=== PATIENT | male | born 1940 | race Caucasian/White ===

== ENCOUNTER 2021-11-04 13:28 | Inpatient (IN) ==
[2021-11-04] MEDS ORDERED: Ondansetron 4 MG/2 ML VIAL IVP PRN (17:17)
[2021-11-04] MEDS ORDERED: Naloxone 0.4 MG/ML INJ IVP PRN (17:35)
[2021-11-04 18:11] LABS: Basophils % 0.1 %; Hematocrit 35.8 % (37.5-50.1); Hemoglobin 11.3 g/dL (12.9-16.9); Immature Granulocytes % 0.3 % (0-4); Lymphocytes # 0.5 K/mcL (0.6-4.6); Lymphocytes % 6.7 %; Mean Corpuscular HGB Conc 31.6 g/dL (31.6-35.5); Mean Corpuscular Hemoglobin 25.3 pg (28.0-33.3); Mean Corpuscular Volume 80.3 fL (83.0-100.0); Mean Platelet Volume 11.9 fL (9.4-12.4); Monocytes # 0.1 K/mcL (0.0-1.3); Neutrophils # 6.2 K/mcL (1.6-8.9); Platelet Count 268 K/mcL (140-400); Red Blood Count 4.46 M/mcL (4.19-5.50); Red Cell Distribution Width 14.6 % (11.5-14.5); Segmented Neutrophils % 91.9 %; White Blood Count 6.7 K/mcL (4.3-11.1)
[2021-11-04 18:20] LABS: INR 1.2; Prothrombin Time 13.3 Seconds (9.4-12.1)
[2021-11-04 18:29] LABS: Albumin 3.5 g/dL (3.5-5.7); Albumin/Globulin Ratio 1.1 (1.1-2.2); Bilirubin,Direct 0.1 mg/dL (0.0-0.2); Bilirubin,Indirect 0.4 mg/dL (0.0-1.0); Bilirubin,Total 0.5 mg/dL (0.3-1.0); Globulin 3.3 g/dL (2.4-3.5); Total Protein 6.8 g/dL (6.4-8.9)
[2021-11-04] MEDS ORDERED: Dextrose 4 GM Chewable Tablets PO PRN ×2 (19:41)
[2021-11-04] MEDS ORDERED: *HR* Dextrose 50 % in Water (Syg) 50 ML SYRINGE IVP PRN (19:41)
[2021-11-04] MEDS ORDERED: D5% in Water 1,000 ML IVC PRN (19:41)
[2021-11-04 20:03] LABS: Calcium 9.4 mg/dL (8.6-10.3); Potassium 4.3 mEq/L (3.5-5.1)
[2021-11-04] MEDS ORDERED: *HR* Labetalol 20 MG/4 ML SYRINGE IVP ONE (23:42)
[2021-11-05] MEDS ORDERED: *HR* LORazepam 2 MG/ML VIAL IVP ONE ×4 (03:20→17:03)
[2021-11-05] MEDS ORDERED: *HR* Labetalol 20 MG/4 ML SYRINGE IVP ONE ×3 (03:24→06:06)
[2021-11-05 06:18] LABS: Hematocrit 34.2 % (37.5-50.1); Hemoglobin 10.9 g/dL (12.9-16.9); Immature Granulocytes % 0.6 % (0-4); Lymphocytes # 0.5 K/mcL (0.6-4.6); Lymphocytes % 5.8 %; Mean Corpuscular HGB Conc 31.9 g/dL (31.6-35.5); Mean Corpuscular Hemoglobin 25.5 pg (28.0-33.3); Mean Corpuscular Volume 80.1 fL (83.0-100.0); Mean Platelet Volume 11.9 fL (9.4-12.4); Monocytes # 0.1 K/mcL (0.0-1.3); Monocytes % 1.2 %; Neutrophils # 7.6 K/mcL (1.6-8.9); Platelet Count 252 K/mcL (140-400); Red Blood Count 4.27 M/mcL (4.19-5.50); Red Cell Distribution Width 14.6 % (11.5-14.5); Segmented Neutrophils % 92.4 %; White Blood Count 8.2 K/mcL (4.3-11.1)
[2021-11-05 06:35] LABS: Calcium 9.4 mg/dL (8.6-10.3); Potassium 3.9 mEq/L (3.5-5.1)
[2021-11-05] MEDS ORDERED: QUEtiapine Fumarate 25 MG TABLET PO SCH (10:00)
[2021-11-05] MEDS: amLODIPine 5 MG TABLET PO SCH (12:47)
[2021-11-05] MEDS ORDERED: amLODIPine 5 MG TABLET PO ONE (14:00)
[2021-11-05] MEDS: carvediloL 6.25 MG TABLET PO SCH (16:25)
[2021-11-05] MEDS: *HR* OxyCODONE/APAP 5/325 TABLET PO PRN (16:25)
[2021-11-05] MEDS: Insulin LISPRO 300 UNITS/3 ML VIAL SUBQ SCH ×2 (16:26→20:36)
[2021-11-05] MEDS ORDERED: Morphine Sulfate 2 MG/ML SYRINGE IVP ONE (16:48)
[2021-11-05] MEDS ORDERED: Phenytoin 1,000 MG in Equashield Syringe 1 EACH IVP ONE (19:11)
[2021-11-05] MEDS ORDERED: Phenytoin 1,000 MG in 0.9 % Sodium Chloride 50 ML IVP ONE (20:00)
[2021-11-05] MEDS: Ipratropium/Albuterol Neb 3 ML IH SCH ×2 (20:30→23:53)
[2021-11-05] MEDS: QUEtiapine Fumarate 25 MG TABLET PO SCH (20:35)
[2021-11-05] MEDS: Isosorbide MONOnitrate (24 HR) 60 MG TAB.ER.24H PO SCH (20:35)
[2021-11-05] MEDS: Spironolactone 12.5 MG TABLET PO SCH (20:36)
[2021-11-05] MEDS: Insulin DETEMIR 100 UNIT/ML X5UNITS SUBQ SCH (20:43)
[2021-11-06] MEDS: *HR* LORazepam 2 MG/ML VIAL IVP PRN ×2 (00:38→08:54)
[2021-11-06 03:26] LABS: Basophils % 0.1 %; Hematocrit 32.1 % (37.5-50.1); Hemoglobin 10.5 g/dL (12.9-16.9); Immature Granulocytes % 0.8 % (0-4); Lymphocytes # 0.7 K/mcL (0.6-4.6); Lymphocytes % 5.5 %; Mean Corpuscular HGB Conc 32.7 g/dL (31.6-35.5); Mean Corpuscular Hemoglobin 26.1 pg (28.0-33.3); Mean Corpuscular Volume 79.7 fL (83.0-100.0); Mean Platelet Volume 12.1 fL (9.4-12.4); Monocytes # 0.6 K/mcL (0.0-1.3); Monocytes % 4.4 %; Neutrophils # 11.2 K/mcL (1.6-8.9); Platelet Count 280 K/mcL (140-400); Red Blood Count 4.03 M/mcL (4.19-5.50); Red Cell Distribution Width 14.8 % (11.5-14.5); Segmented Neutrophils % 89.2 %; White Blood Count 12.6 K/mcL (4.3-11.1)
[2021-11-06 03:48] LABS: Calcium 9.3 mg/dL (8.6-10.3); Potassium 4.3 mEq/L (3.5-5.1)
[2021-11-06] MEDS: Ipratropium/Albuterol Neb 3 ML IH SCH ×2 (05:11→11:21)
[2021-11-06] MEDS: Isosorbide MONOnitrate (24 HR) 60 MG TAB.ER.24H PO SCH ×2 (08:02→22:02)
[2021-11-06] MEDS: Spironolactone 12.5 MG TABLET PO SCH ×2 (08:02→22:01)
[2021-11-06] MEDS: Insulin DETEMIR 100 UNIT/ML X5UNITS SUBQ SCH ×2 (08:02→22:00)
[2021-11-06] MEDS: amLODIPine 5 MG TABLET PO SCH (08:02)
[2021-11-06] MEDS: carvediloL 6.25 MG TABLET PO SCH ×2 (08:03→17:28)
[2021-11-06] MEDS: QUEtiapine Fumarate 25 MG TABLET PO SCH ×3 (08:03→22:00)
[2021-11-06] MEDS: Insulin LISPRO 300 UNITS/3 ML VIAL SUBQ SCH ×4 (08:05→22:00)
[2021-11-06] MEDS: *HR* OxyCODONE/APAP 5/325 TABLET PO PRN ×2 (08:09→17:48)
[2021-11-06] MEDS ORDERED: Loratadine 10 MG TABLET PO SCH (09:00)
[2021-11-06] MEDS ORDERED: Ipratropium/Albuterol Neb 3 ML IH PRN (11:55)
[2021-11-06] MEDS: *HR* LORazepam 2 MG/ML VIAL IVP SCH ×2 (14:47→21:56)
[2021-11-06] MEDS: [UNRECOGNIZED DRUG - OTHER] IVP SCH (20:00)
[2021-11-06] MEDS: PHENYTOIN IVP SCH (20:00)
[2021-11-07] MEDS: *HR* LORazepam 2 MG/ML VIAL IVP SCH ×3 (05:41→21:53)
[2021-11-07 06:32] LABS: Basophils % 0.1 %; Hematocrit 38.1 % (37.5-50.1); Immature Granulocytes % 0.5 % (0-4); Lymphocytes # 0.8 K/mcL (0.6-4.6); Lymphocytes % 5.3 %; Mean Corpuscular HGB Conc 32.5 g/dL (31.6-35.5); Mean Corpuscular Hemoglobin 25.8 pg (28.0-33.3); Mean Corpuscular Volume 79.4 fL (83.0-100.0); Mean Platelet Volume 11.7 fL (9.4-12.4); Monocytes # 1.3 K/mcL (0.0-1.3); Monocytes % 9.1 %; Neutrophils # 12.1 K/mcL (1.6-8.9); Platelet Count 297 K/mcL (140-400); Red Cell Distribution Width 14.8 % (11.5-14.5); White Blood Count 14.2 K/mcL (4.3-11.1)
[2021-11-07 06:34] LABS: Hemoglobin 12.4 g/dL (12.9-16.9)
[2021-11-07 06:52] LABS: Calcium 9.5 mg/dL (8.6-10.3); Potassium 3.9 mEq/L (3.5-5.1)
[2021-11-07] MEDS: Insulin LISPRO 300 UNITS/3 ML VIAL SUBQ SCH ×4 (08:22→21:10)
[2021-11-07] MEDS: amLODIPine 5 MG TABLET PO SCH (12:22)
[2021-11-07] MEDS: carvediloL 6.25 MG TABLET PO SCH ×2 (12:22→18:01)
[2021-11-07] MEDS: Isosorbide MONOnitrate (24 HR) 60 MG TAB.ER.24H PO SCH ×3 (12:26→21:59)
[2021-11-07] MEDS: QUEtiapine Fumarate 25 MG TABLET PO SCH ×3 (12:42→21:59)
[2021-11-07] MEDS: Spironolactone 12.5 MG TABLET PO SCH ×3 (12:42→21:59)
[2021-11-07] MEDS: Insulin DETEMIR 100 UNIT/ML X5UNITS SUBQ SCH ×2 (12:53→21:16)
[2021-11-07] MEDS: PHENYTOIN IVP SCH (19:45)
[2021-11-07] MEDS: [UNRECOGNIZED DRUG - OTHER] IVP SCH (19:45)
[2021-11-07] MEDS ORDERED: *HR* LORazepam 2 MG/ML VIAL IVP ONE (22:20)
[2021-11-08] MEDS ORDERED: *HR* LORazepam 2 MG/ML VIAL IVP ONE (02:11)
[2021-11-08 03:01] LABS: Basophils % 0.1 %; Eosinophils % 0.1 %; Hematocrit 37.2 % (37.5-50.1); Hemoglobin 11.7 g/dL (12.9-16.9); Immature Granulocytes % 0.3 % (0-4); Lymphocytes # 0.7 K/mcL (0.6-4.6); Lymphocytes % 5.9 %; Mean Corpuscular HGB Conc 31.5 g/dL (31.6-35.5); Mean Corpuscular Hemoglobin 24.9 pg (28.0-33.3); Mean Corpuscular Volume 79.3 fL (83.0-100.0); Mean Platelet Volume 11.7 fL (9.4-12.4); Monocytes % 8.6 %; Neutrophils # 9.9 K/mcL (1.6-8.9); Platelet Count 286 K/mcL (140-400); Red Blood Count 4.69 M/mcL (4.19-5.50); White Blood Count 11.6 K/mcL (4.3-11.1)
[2021-11-08 03:19] LABS: Calcium 9.1 mg/dL (8.6-10.3); Potassium 3.9 mEq/L (3.5-5.1)
[2021-11-08] MEDS: *HR* LORazepam 2 MG/ML VIAL IVP SCH ×2 (06:19→15:04)
[2021-11-08] MEDS: Insulin LISPRO 300 UNITS/3 ML VIAL SUBQ SCH ×4 (09:29→20:41)
[2021-11-08] MEDS ORDERED: Haloperidol Oral Conc 10 MG/5 ML UDC PO PRN (11:09)
[2021-11-08] MEDS: amLODIPine 5 MG TABLET PO SCH (11:41)
[2021-11-08] MEDS: QUEtiapine Fumarate 25 MG TABLET PO SCH ×2 (11:41→19:59)
[2021-11-08] MEDS: Spironolactone 12.5 MG TABLET PO SCH ×2 (11:41→19:59)
[2021-11-08] MEDS: Isosorbide MONOnitrate (24 HR) 60 MG TAB.ER.24H PO SCH ×2 (11:41→19:59)
[2021-11-08] MEDS: carvediloL 6.25 MG TABLET PO SCH ×2 (11:42→18:11)
[2021-11-08] MEDS: Insulin DETEMIR 100 UNIT/ML X5UNITS SUBQ SCH ×2 (13:31→20:45)
[2021-11-08] MEDS: [UNRECOGNIZED DRUG - OTHER] IVP SCH (19:58)
[2021-11-08] MEDS: PHENYTOIN IVP SCH (19:58)
[2021-11-08] MEDS: Melatonin 3 MG TABLET PO PRN (19:59)
[2021-11-09] MEDS ORDERED: *HR* LORazepam 2 MG/ML VIAL IM PRN (05:11)
[2021-11-09] MEDS: amLODIPine 5 MG TABLET PO SCH ×2 (07:49→08:12)
[2021-11-09] MEDS: carvediloL 6.25 MG TABLET PO SCH ×3 (07:49→16:51)
[2021-11-09] MEDS: Spironolactone 12.5 MG TABLET PO SCH ×3 (07:49→20:22)
[2021-11-09] MEDS: QUEtiapine Fumarate 25 MG TABLET PO SCH ×3 (07:49→20:21)
[2021-11-09] MEDS: dexAMETHasone 4 MG TABLET PO SCH ×2 (07:50→08:12)
[2021-11-09] MEDS: Isosorbide MONOnitrate (24 HR) 60 MG TAB.ER.24H PO SCH ×3 (07:54→20:22)
[2021-11-09] MEDS: Insulin LISPRO 300 UNITS/3 ML VIAL SUBQ SCH ×3 (08:03→16:47)
[2021-11-09] MEDS: Insulin DETEMIR 100 UNIT/ML X5UNITS SUBQ SCH ×2 (10:30→20:33)
[2021-11-09] MEDS ORDERED: Haloperidol Lactate 5 MG/ML VIAL IVP PRN (16:13)
[2021-11-09] MEDS ORDERED: Haloperidol Oral Conc 10 MG/5 ML UDC PO PRN (16:18)
[2021-11-09] MEDS: Haloperidol Oral Conc 10 MG/5 ML UDC PO SCH ×2 (16:57→20:18)
[2021-11-09] MEDS: PHENYTOIN IVP SCH (20:18)
[2021-11-09] MEDS: [UNRECOGNIZED DRUG - OTHER] IVP SCH (20:18)
[2021-11-09] MEDS: *HR* LORazepam 2 MG/ML VIAL IVP PRN (20:21)
[2021-11-09] MEDS: Melatonin 3 MG TABLET PO PRN (20:22)
[2021-11-10] MEDS: Insulin LISPRO 300 UNITS/3 ML VIAL SUBQ SCH ×5 (05:26→21:00)
[2021-11-10] MEDS: QUEtiapine Fumarate 25 MG TABLET PO SCH ×2 (08:08→20:12)
[2021-11-10] MEDS: amLODIPine 5 MG TABLET PO SCH (08:09)
[2021-11-10] MEDS: dexAMETHasone 4 MG TABLET PO SCH (08:09)
[2021-11-10] MEDS: carvediloL 6.25 MG TABLET PO SCH ×2 (08:09→16:04)
[2021-11-10] MEDS: Haloperidol Oral Conc 10 MG/5 ML UDC PO SCH ×3 (08:09→20:12)
[2021-11-10] MEDS: Spironolactone 12.5 MG TABLET PO SCH ×2 (08:12→20:13)
[2021-11-10] MEDS: Isosorbide MONOnitrate (24 HR) 60 MG TAB.ER.24H PO SCH ×2 (08:12→20:12)
[2021-11-10] MEDS: Insulin DETEMIR 100 UNIT/ML X5UNITS SUBQ SCH ×2 (08:12→21:00)
[2021-11-10] MEDS: *HR* LORazepam 2 MG/ML VIAL IVP PRN (20:13)
[2021-11-10] MEDS: Melatonin 3 MG TABLET PO PRN (20:13)
[2021-11-11] MEDS: [UNRECOGNIZED DRUG - OTHER] IVP SCH ×2 (05:05→20:19)
[2021-11-11] MEDS: PHENYTOIN IVP SCH ×2 (05:05→20:19)
[2021-11-11] MEDS: Haloperidol Oral Conc 10 MG/5 ML UDC PO SCH ×3 (08:47→20:22)
[2021-11-11] MEDS: Insulin LISPRO 300 UNITS/3 ML VIAL SUBQ SCH ×4 (10:03→20:30)
[2021-11-11] MEDS: Isosorbide MONOnitrate (24 HR) 60 MG TAB.ER.24H PO SCH ×2 (10:04→20:29)
[2021-11-11] MEDS: Spironolactone 12.5 MG TABLET PO SCH ×2 (10:04→20:24)
[2021-11-11] MEDS: dexAMETHasone 4 MG TABLET PO SCH (10:04)
[2021-11-11] MEDS: Insulin DETEMIR 100 UNIT/ML X5UNITS SUBQ SCH ×2 (10:04→20:29)
[2021-11-11] MEDS: amLODIPine 5 MG TABLET PO SCH (10:04)
[2021-11-11] MEDS: QUEtiapine Fumarate 25 MG TABLET PO SCH ×2 (10:04→20:29)
[2021-11-11] MEDS: carvediloL 6.25 MG TABLET PO SCH ×2 (10:04→16:44)
[2021-11-11] MEDS: *HR* LORazepam 2 MG/ML VIAL IVP PRN ×3 (10:21→23:54)
[2021-11-12] MEDS: Haloperidol Oral Conc 10 MG/5 ML UDC PO SCH ×3 (08:32→20:28)
[2021-11-12] MEDS: *HR* LORazepam 2 MG/ML VIAL IVP PRN ×4 (08:32→20:15)
[2021-11-12] MEDS: dexAMETHasone 4 MG TABLET PO SCH (09:24)
[2021-11-12] MEDS: carvediloL 6.25 MG TABLET PO SCH ×2 (09:24→17:18)
[2021-11-12] MEDS: Spironolactone 12.5 MG TABLET PO SCH ×2 (09:24→20:28)
[2021-11-12] MEDS: amLODIPine 5 MG TABLET PO SCH (09:26)
[2021-11-12] MEDS: Isosorbide MONOnitrate (24 HR) 60 MG TAB.ER.24H PO SCH ×2 (09:26→20:28)
[2021-11-12] MEDS: Insulin DETEMIR 100 UNIT/ML X5UNITS SUBQ SCH ×2 (09:26→20:30)
[2021-11-12] MEDS: QUEtiapine Fumarate 25 MG TABLET PO SCH ×2 (09:27→20:30)
[2021-11-12] MEDS: Insulin LISPRO 300 UNITS/3 ML VIAL SUBQ SCH ×4 (09:36→20:28)
[2021-11-12] MEDS: Haloperidol Lactate 5 MG/ML VIAL IVP PRN ×3 (13:59→21:20)
[2021-11-12] MEDS ORDERED: Valproic Acid INJ 500 MG in 0.9 % Sodium Chloride 100 ML IVPB SCH (18:00)
[2021-11-12] MEDS: Valproic Acid INJ 500 MG in 0.9 % Sodium Chloride 100 ML IVPB SCH (20:14)
[2021-11-13] MEDS: *HR* LORazepam 2 MG/ML VIAL IVP PRN (04:04)
[2021-11-13] MEDS: Valproic Acid INJ 500 MG in 0.9 % Sodium Chloride 100 ML IVPB SCH (06:10)
[2021-11-13] MEDS: Insulin DETEMIR 100 UNIT/ML X5UNITS SUBQ SCH (09:09)
[2021-11-13] MEDS: Haloperidol Lactate 5 MG/ML VIAL IVP PRN (09:18)
[2021-11-13] MEDS: carvediloL 6.25 MG TABLET PO SCH (09:31)
[2021-11-13] MEDS: Isosorbide MONOnitrate (24 HR) 60 MG TAB.ER.24H PO SCH (09:32)
[2021-11-13] MEDS: amLODIPine 5 MG TABLET PO SCH (09:32)
[2021-11-13] MEDS: Haloperidol Oral Conc 10 MG/5 ML UDC PO SCH ×2 (09:32→15:53)
[2021-11-13] MEDS: Spironolactone 12.5 MG TABLET PO SCH (09:32)
[2021-11-13] MEDS: QUEtiapine Fumarate 25 MG TABLET PO SCH (09:32)
[2021-11-13] MEDS: dexAMETHasone 4 MG TABLET PO SCH (09:32)
[2021-11-13] MEDS: Insulin LISPRO 300 UNITS/3 ML VIAL SUBQ SCH (09:33)
[2021-11-13] MEDS ORDERED: Insulin LISPRO 300 UNITS/3 ML VIAL SUBQ SCH (11:15)
[2021-11-13 11:23] VITALS: PULSE 85; TEMP 97.7; O2SAT 98
[2021-11-13 15:50] VITALS: BP 192/93
== END 2021-11-13 17:05 | disposition hospice, inpatient (51) | DRG 54 ==
LOC: 3ANU → SUATTDRO 17:06 → 3NENU 11-07 09:28
PROVIDERS: ADMIT Student in an Organized Health Care Education/Training Program; ATTEND Internal Medicine Hospice and Palliative Medicine

== ENCOUNTER 2021-11-13 16:20 | Inpatient (IN) ==
[2021-11-13] MEDS ORDERED: Bisacodyl 10 MG RECTAL SUPPOSITORY RC PRN (16:44)
[2021-11-13] MEDS ORDERED: *HR* LORazepam 2 MG/ML VIAL IVP PRN (16:44)
[2021-11-13] MEDS ORDERED: *HR* FentaNYL (PF) 100 MCG/2 ML VIAL IVP PRN (16:53)
[2021-11-13] MEDS: Valproic Acid INJ 500 MG in 0.9 % Sodium Chloride 100 ML IVPB SCH (19:34)
[2021-11-13] MEDS: Haloperidol Oral Conc 10 MG/5 ML UDC PO SCH (20:38)
[2021-11-13] MEDS: Haloperidol Lactate 5 MG/ML VIAL IVP PRN (20:45)
[2021-11-14] MEDS: Haloperidol Lactate 5 MG/ML VIAL IVP PRN ×6 (02:29→14:20)
[2021-11-14] MEDS: Valproic Acid INJ 500 MG in 0.9 % Sodium Chloride 100 ML IVPB SCH ×2 (06:56→20:49)
[2021-11-14] MEDS: Haloperidol Oral Conc 10 MG/5 ML UDC PO SCH ×3 (12:49→20:30)
[2021-11-14] MEDS ORDERED: Saliva Stimulant 44.3ml BOTTLE PO PRN (13:10)
[2021-11-14] MEDS ORDERED: *HR* FentaNYL (PF) 100 MCG/2 ML VIAL IVP PRN (13:11)
[2021-11-14] MEDS ORDERED: *HR* FentaNYL PATCH 25 MCG PATCH TD SCH (14:00)
[2021-11-15] MEDS: Haloperidol Oral Conc 10 MG/5 ML UDC PO SCH ×3 (01:54→13:48)
[2021-11-15 06:51] VITALS: BP 142/60; PULSE 80; TEMP 98.6; O2SAT 90
[2021-11-15] MEDS: Valproic Acid INJ 500 MG in 0.9 % Sodium Chloride 100 ML IVPB SCH (07:20)
[2021-11-15] MEDS ORDERED: Scopolamine Patch 1.5 MG PATCH.TD72 TD SCH (10:00)
== END 2021-11-15 17:10 | disposition expired | DRG 951 ==
LOC: 3NENU 17:56 → 2ANU 11-14 14:43
PROVIDERS: ADMIT Internal Medicine Hospice and Palliative Medicine; ATTEND Internal Medicine Hospice and Palliative Medicine